=== PATIENT | male | born 1965 | race Two or more races ===

== ENCOUNTER 2018-04-09 07:41 | Emergency (ER) | payer SELFPAY ==
[2018-04-09] MEDS ORDERED: LIDOCAINE 1% INJ-PF (10 MG/ML) 30 ML SDV INJ ONE (08:40)
--- NOTE | 2018-04-09 08:42 | ER Document Report ---
HPI - HPI Patient complains to provider of: neck abscess Pain Level: 3 Context: Patient is a 52-year-old male presenting to the emergency department complaining of a sore and swelling to the back of his neck for the last 3 days. Patient states he has noted scant amount of discharge from the sore and is presenting to the emergency department because the area has increased in size. Patient denies any fever, history of MRSA in the past or history of abscesses in the past. Past medical history: None Medications: None Allergies: None - CONSTITUTIONAL Constitutional: DENIES: Fever, Chills - EENT EENT: DENIES: Sore Throat, Ear Pain, Eye problems - NEURO Neurology: DENIES: Headache, Weakness, Vision blurred, Dizzinesss / Vertigo - CARDIOVASCULAR Cardiovascular: DENIES: Chest pain - RESPIRATORY Respiratory: DENIES: Trouble Breathing, Coughing - GASTROINTESTINAL Gastrointestinal: DENIES: Abdominal Pain, Black / Bloody Stools - URINARY Urinary: DENIES: Dysuria, Urgency, Frequency - MUSCULOSKELETAL Musculoskeletal: DENIES: Extremity pain Past Medical History - General Information source: Patient - Social History Smoking Status: Current Every Day Smoker Chew tobacco use (# tins/day): No Frequency of alcohol use: Occasional Drug Abuse: Marijuana Lives with: Family Family History: Reviewed & Not Pertinent Patient has suicidal ideation: No Patient has homicidal ideation: No Renal/ Medical History: Denies: Hx Peritoneal Dialysis Vertical Provider Document - CONSTITUTIONAL Agree With Documented VS: Yes Notes: GENERAL: Alert, interacts well. No acute distress. HEAD: Normocephalic, atraumatic. EYES: Pupils equal, round, and reactive to light. Extraocular movements intact. ENT: Oral mucosa moist, tongue midline. NECK: Full range of motion. Supple. Trachea midline. LUNGS: Clear to auscultation bilaterally, no wheezes, rales, or rhonchi. No respiratory distress. HEART: Regular rate and rhythm. No murmur ABDOMEN: Soft, non-tender. Non-distended. Bowel sounds present in all 4 quadrants. EXTREMITIES: Moves all 4 extremities spontaneously. No edema, normal radial and dorsalis pedis pulses bilaterally. No cyanosis. BACK: no cervical, thoracic, lumbar midline tenderness. No saddle anesthesia, normal distal neurovascular exam. NEUROLOGICAL: Alert and oriented x3. Normal speech. cranial nerves II through XII grossly intact PSYCH: Normal affect, normal mood. SKIN: Warm, dry, normal turgor. 2 cm x 2 cm fluctuant area the back of the patient's neck paraspinal right with surrounding cellulitic tissue. - INFECTION CONTROL TRAVEL OUTSIDE OF THE [place] IN LAST 30 DAYS: No Course - Re-evaluation Re-evalutation: 04/09/18 09:23 Incision and drain performed patient tolerated well. See procedure note. Discussed with patient need for oral antibiotics and continued primary care follow-up. - Vital Signs Vital signs: Temp Pulse Resp BP Pulse Ox 98.5 F 73 16 143/94 H 98 04/09/18 07:45 04/09/18 07:45 04/09/18 07:45 04/09/18 07:45 04/09/18 07:45 Procedures - Incision and Drainage Neck Type: Simple Anesthetic type: 1% Lidocaine Blade size: 11 I&D procedure: Betadine prep applied, Sterile dressing applied Incision Method: Incision made by scalpel Amount/type of drainage: 5cc Adult Head Front/Back picture: 1 - Abscess Discharge - Discharge Clinical Impression: Abscess Cellulitis Qualifiers: Site of cellulitis: neck Qualified Code(s): L03.221 - Cellulitis of neck Condition: Stable Disposition: HOME, SELF-CARE Instructions: Abscess ([facility]), Cephalexin ([facility]), Post Incision and Drainage, Trimethoprim-Sulfa ([facility]) Additional Instructions: As we discussed you have been seen and treated in the emergency room for an abscess with surrounding cellulitis. Please take medications as prescribed. Please return to the emergency room for any other concerning symptoms Prescriptions: Cephalexin Monohydrate [Keflex 500 mg Capsule] 500 mg PO BID 7 Days #14 capsule Sulfamethoxazole/Trimethoprim [Bactrim Ds Tablet] 1 each PO BID 7 Days #14 tablet
[2018-04-09 09:34] VITALS: BP 140/90
== END 2018-04-09 09:40 | disposition home or self-care (01) ==
LOC: ER 07:41
DX: L02.11 Cutaneous abscess of neck (principal); L03.221 Cellulitis of neck; F17.200 Nicotine dependence, unspecified, uncomplicated
CPT/HCPCS: 99283; 10060; J3490